=== PATIENT | male | born 1940 | race Caucasian/White ===

== ENCOUNTER 2019-06-30 07:28 | Day surgery (SDC) | payer MEDICARE ==
[2019-06-29 09:48] VITALS: BMI 33.2
[2019-06-30] MEDS ORDERED: Oxymetazoline HCl 0.05% ( 15 ML ) ONE ×2 (08:40→10:24)
[2019-06-30 09:00] LABS: Hemoglobin 17.3 g/dL (14.0-18.0)
[2019-06-30 09:21] LABS: Anion Gap 12 mmol/L (10-20); BUN (Urea Nitrogen) 23 mg/dL (8.4-25.7); Calc. Creatinine Clearance 90 mL/min (70-130); Calcium 9.9 mg/dL (7.8-10.44); Carbon Dioxide 27 mmol/L (23-31); Chloride 105 mmol/L (98-107); Estimated GFR-MDRD 73; Glucose 107 mg/dL (83-110); Sodium 140 mmol/L (136-145)
[2019-06-30] MEDS ORDERED: Bacitracin Zinc Ointment 30 gm TUBE ONE (10:24)
[2019-06-30] MEDS ORDERED: Lidocaine 1% w/Epinephrine 1:100K 20 ML VIAL ONE (10:24)
[2019-06-30] MEDS ORDERED: Fentanyl 250 MCG/5 ML VIAL ONE (10:38)
[2019-06-30] MEDS ORDERED: Fentanyl 100 MCG/2 ML VIAL ONE (12:14)
[2019-06-30] MEDS ORDERED: Hydrocodone-Acetamin 15 ML UDCUP ONE (13:40)
--- NOTE | 2019-06-30 23:19 | OP ---
DATE OF PROCEDURE: 06/30/2019 PREOPERATIVE DIAGNOSES: 1. Nasal septal deviation. 2. Nasal septal perforation. 3. 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 5. Nasal obstruction. POSTOPERATIVE DIAGNOSES: 1. Nasal septal deviation. 2. Nasal septal perforation. 3. 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 5. Nasal obstruction. PROCEDURES PERFORMED: 1. Nasal septoplasty/repair of nasal septal perforation. 2. Bilateral inferior turbinate submucosal resection. 3. Repair of lateral nasal wall defect. ESTIMATED BLOOD LOSS: 10 mL. COMPLICATIONS: None. ANESTHESIA: GETA. DESCRIPTION OF PROCEDURE: The patient was taken to the operating room and placed supine on the table, general endotracheal anesthesia was obtained by the anesthesia staff. The patient was prepped and draped for standard nasal procedure. Following this, Afrin pledgets removed from the nasal cavity and the nasal cavity was inspected. A perforation of approximately 1 cm in diameter was located in the midportion of the septum. There was eroded bone cartilage adjacent to this area causing a large septal spur. A submucosal flap was created with a 15 blade and the submucosal microdebrider was then inserted into this cartilage bony spur. This was shaved down. Following this, a mucosal advancement flap was rotated over the nasal septal defect and a 4-0 chromic gut stitch was placed in mattress style securing the mucoperichondrial flaps bilaterally. Following this, the inferior turbinates were punctured on the anterior-inferior aspect with submucosal microdebrider and submucosal resection was performed on the anterior and inferior portions of the inferior turbinates bilaterally. Following this, an incision was made below the lower lateral cartilages of the nasal ala and dissection was then carried over the lateral valve and a polymer implant was placed over the nasal bones and extended down to the nasal ala providing support to the lateral nasal wall defect. The nasal cavity was irrigated. The patient tolerated the procedure well. Job ID: [id number]
== END 2019-06-30 13:46 | disposition home or self-care (01) ==
LOC: SDC 07:28
PROVIDERS: ATTEND Otolaryngology Plastic Surgery within the Head & Neck
PROC: 09SM0ZZ Reposition Nasal Septum, Open Approach (ICD-10-PCS; principal; 2019-06-30)
PROC: 09TL0ZZ Resection of Nasal Turbinate, Open Approach (ICD-10-PCS; 2019-06-30)
DX: J34.2 Deviated nasal septum (principal); J34.3 Hypertrophy of nasal turbinates; J34.89 Other specified disorders of nose and nasal sinuses; J32.9 Chronic sinusitis, unspecified; I10 Essential (primary) hypertension; E78.5 Hyperlipidemia, unspecified; N40.0 Benign prostatic hyperplasia without lower urinary tract symptoms; E78.00 Pure hypercholesterolemia, unspecified; Z79.82 Long term (current) use of aspirin; Z79.899 Other long term (current) drug therapy
CPT/HCPCS: 80048; 85014; 85018; 93005; 93010; J0131; J3010

== ENCOUNTER 2020-10-12 10:49 | Outpatient (CLI) | payer MEDICARE | END 2020-10-12 10:50 | disposition home or self-care (01) | LOC: CTENTCT 10:49 | PROVIDERS: ATTEND Otolaryngology Plastic Surgery within the Head & Neck | DX: J32.9 Chronic sinusitis, unspecified (principal) | CPT/HCPCS: 70486 ==